=== PATIENT | female | born 1970 | race Two or more races ===

== ENCOUNTER 2022-11-09 | Outpatient (CLI) | payer OTHER | END 2022-11-09 00:15 | disposition home or self-care (01) | LOC: PPH VACUNA | PROVIDERS: ATTEND Emergency Medicine Pediatric Emergency Medicine | DX: Z23 Encounter for immunization (principal) ==

== ENCOUNTER 2022-11-09 | Outpatient (CLI) | payer OTHER | END 2022-11-09 00:15 | disposition home or self-care (01) | LOC: PPH VACUNA | PROVIDERS: ATTEND Emergency Medicine Pediatric Emergency Medicine | DX: Z23 Encounter for immunization (principal) ==

== ENCOUNTER → 2023-03-09 | Outpatient (CLI) | payer OTHER ==
[~2023-03-09] MED LIST: COZAAR100 MG PO; DIURETIC SOFTGE50 MG PO; VASOTEC2.5 MG PO
== END | disposition home or self-care (01) ==
LOC: PPH VACUNA
PROVIDERS: ATTEND Emergency Medicine Pediatric Emergency Medicine
DX: Z23 Encounter for immunization (principal)

== ENCOUNTER 2023-04-27 14:14 | Outpatient (CLI) | payer OTHER | END 2023-04-27 14:20 | disposition home or self-care (01) | LOC: MAMO-SONO 14:14 | PROVIDERS: ATTEND Radiology Diagnostic Radiology | DX: N60.11 Diffuse cystic mastopathy of right breast (principal); N60.12 Diffuse cystic mastopathy of left breast; Z12.31 Encounter for screening mammogram for malignant neoplasm of breast ==

== ENCOUNTER 2024-10-28 08:43 | Emergency (ER) | payer OTHER ==
[~2024-10-28] VITALS: Ht 149.9 cm; Wt 77.1 kg
[2024-10-28] MEDS ORDERED: CLONIDINE HCL 0.1 MG TABLET PO ONE (09:13)
[2024-10-28] MEDS ORDERED: cloNIDine HCL 0.2 MG TABLET PO ONE (09:15)
[2024-10-28] MEDS ORDERED: hydrOXYzine PAMOATE 50 MG CAPSULE PO ONE ×2 (10:21→10:30)
== END 2024-10-28 13:43 | disposition home or self-care (01) ==
LOC: ER 08:44
DX: I10 Essential (primary) hypertension (principal)

== ENCOUNTER 2024-12-11 07:10 | Emergency (ER) | payer OTHER ==
[~2024-12-11] VITALS: Ht 149.9 cm; Wt 77.1 kg
[2024-12-11] MEDS ORDERED: KETOROLAC TROMETHAMINE 60 MG VIAL IM STA (07:36)
[2024-12-11] MEDS ORDERED: KETOROLAC TROMETHAMINE 60 MG VIAL IM ONE (08:13)
== END 2024-12-11 09:09 | disposition home or self-care (01) ==
LOC: ER 07:13
DX: S80.12XA Contusion of left lower leg, initial encounter (principal); X58.XXXA Exposure to other specified factors, initial encounter; Y93.89 Activity, other specified; Y92.69 Other specified industrial and construction area as the place of occurrence of the external cause; Y99.8 Other external cause status; I10 Essential (primary) hypertension